=== PATIENT | female | born 2000 | race Two or more races ===

== ENCOUNTER 2020-11-15 21:39 | Emergency (ER) | payer BC, MEDICAID ==
[~2020-11-15] VITALS: Ht 157.5 cm; Wt 63.5 kg
[2020-11-15 21:45] VITALS: BP 130/84
== END 2020-11-16 02:24 | disposition home or self-care (01) ==
LOC: ER 21:39
DX: S16.1XXA Strain of muscle, fascia and tendon at neck level, initial encounter (principal); S00.03XA Contusion of scalp, initial encounter; S09.8XXA Other specified injuries of head, initial encounter; W17.89XA Other fall from one level to another, initial encounter; Y93.89 Activity, other specified; Y92.89 Other specified places as the place of occurrence of the external cause; Y99.8 Other external cause status
CPT/HCPCS: 70450; 72125; 81025